=== PATIENT | female | born 1990 ===

== ENCOUNTER 2017-05-05 11:41 | Emergency (ER) | payer OTHER ==
[2017-05-05 12:17] VITALS: BP 117/90; PULSE 79; RESP 14; TEMP 97.9; O2SAT 100
[2017-05-05 12:57] LABS: HCG,QUALITATIVE URINE NEGATIVE (NEGATIVE)
[2017-05-05 13:23] LABS: URINE BACTERIA RARE (<OCC); URINE BILIRUBIN NEGATIVE (NEGATIVE); URINE BLOOD 2+ (NEGATIVE); URINE CLARITY Clear (Clear); URINE COLOR Yellow (YELLOW); URINE GLUCOSE (UA) NORMAL (Normal); URINE LEUKOCYTE ESTERASE NEG Leu/uL (Negative); URINE NITRATE NEGATIVE (NEGATIVE); URINE PROTEIN NEGATIVE (NEGATIVE); URINE UROBILINOGEN NORMAL mg/dL (0.2-1.0)
--- NOTE | 2017-05-05 13:24 | C.PDOC ---
History Of Present Illness 26 y/o female presents to the ER complaining of abnormal period which has been present for 15 days. Patient states that she has been using 2 pads each day. Patient denies any dizziness, chest pain, shortness of breath, abdominal pain, and dysuria. Time Seen by Provider: 05/05/17 12:39 Chief Complaint (Nursing): Female Genitourinary History Per: Patient History/Exam Limitations: no limitations Onset/Duration Of Symptoms: Days Current Symptoms Are (Timing): Still Present Severity: Moderate Past Medical History Reviewed: Historical Data, Nursing Documentation, Vital Signs Vital Signs: Last Vital Signs Temp 97.9 F 05/05/17 12:12 Pulse 79 05/05/17 12:12 Resp 14 05/05/17 12:12 BP 117/90 05/05/17 12:12 Pulse Ox 100 05/05/17 17:53 - Medical History PMH: No Chronic Diseases Surgical History: No Surg Hx Family History: States: No Known Family Hx - Social History Hx Alcohol Use: No Hx Substance Use: No - Immunization History Hx Influenza Vaccination: No Hx Pneumococcal Vaccination: No Review Of Systems Cardiovascular: Negative for: Chest Pain Respiratory: Negative for: Shortness of Breath Gastrointestinal: Negative for: Abdominal Pain Genitourinary: Positive for: Vaginal Bleeding. Negative for: Dysuria Neurological: Negative for: Dizziness Physical Exam - Physical Exam Appears: Non-toxic, No Acute Distress Skin: Normal Color, Warm Head: Atraumatic, Normacephalic Eye(s): bilateral: Normal Inspection, PERRL Nose: Normal Oral Mucosa: Moist Neck: Supple Chest: Symmetrical Cardiovascular: Rhythm Regular Respiratory: Normal Breath Sounds, No Accessory Muscle Use, No Rales, No Rhonchi , No Wheezing Gastrointestinal/Abdominal: Normal Exam, Soft, No Tenderness Extremity: Normal ROM Neurological/Psych: Oriented x3, Normal Speech, Normal Cognition, Normal Motor, Normal Sensation ED Course And Treatment O2 Sat by Pulse Oximetry: 100 (RA) Pulse Ox Interpretation: Normal Progress Note: Patient has been informed that she needs to see an TABULAR TYPIST for her abnormal vaginal bleeding. Disposition Counseled Patient/Family Regarding: Diagnosis, Need For Followup - Disposition Referrals: [facility] [Outside] Disposition: HOME/ ROUTINE Disposition Time: 13:20 Condition: STABLE Additional Instructions: FOLLOW UP WITH TABULAR TYPIST CLINIC WITHIN 1 WEEK RETURN TO ER IF SYMPTOMS WORSEN Instructions: Dysfunctional Uterine Bleeding (ED) Forms: [facility] (Armenian) Print Language: SAMI - POA Present On Arrival: None - Clinical Impression Clinical Impression: Dysfunctional uterine bleeding - Scribe Statement The provider has reviewed the documentation as recorded by the Gabrielibe Vidya Villarreal Provider Attestation: All medical record entries made by the Gabrielibe were at my direction and personally dictated by me. I have reviewed the chart and agree that the record accurately reflects my personal performance of the history, physical exam, medical decision making, and the department course for this patient. I have also personally directed, reviewed, and agree with the discharge instructions and disposition.
== END 2017-05-05 13:45 | disposition home or self-care (01) ==
LOC: C.ER 11:41
DX: N93.8 Other specified abnormal uterine and vaginal bleeding (principal)